=== PATIENT | female | born 1995 | race Caucasian/White ===

== ENCOUNTER 2017-10-19 05:16 | Emergency (ER) | payer OTHER ==
[~2017-10-19] VITALS: Ht 157.5 cm; Wt 45.5 kg
[2017-10-19] MEDS ORDERED: ALBUTEROL SUL0.083 % IN (05:54)
[2017-10-19] MEDS ORDERED: VENTOLIN HFA IN (05:54)
[2017-10-19 06:41] LABS: HEMOGLOBIN 13.1 g/dl (12.0-16.0); IMMATURE GRANULOCYTES 0.3 % (0.0-1.0); MEAN CELL VOLUME 90.3 fL CALC (80.0-100.0); MEAN CORPUSCULAR HGB 30.3 pG CALC (26.0-32.0); MEAN CORPUSCULAR HGB CONC 33.6 g/L CALC (32.0-36.0); NEUT# 5.71 thou/uL (2.00-7.15); RED BLOOD COUNT 4.32 mill/uL (4.20-5.60); RED CELL DISTRI WIDTH 13.1 % (11.5-15.5)
[2017-10-19] MEDS ORDERED: PREDNISONE10 MG PO (06:47)
[2017-10-19 07:24] VITALS: BP 127/78
== END 2017-10-19 07:46 | disposition home or self-care (01) | DRG 203 ==
LOC: ED 05:16
PROVIDERS: Family Medicine
DX: J45.901 Unspecified asthma with (acute) exacerbation (principal)

== ENCOUNTER 2018-01-13 08:53 | Emergency (ER) | payer OTHER ==
[~2018-01-13] VITALS: Ht 157.5 cm; Wt 70.0 kg
[~2018-01-13 08:53] MED LIST: ALBUTEROL SUL0.083 % IN; PREDNISONE10 MG PO; VENTOLIN HFA IN
[2018-01-13 09:17] LABS: HEMATOCRIT 36.7 % (37.0-47.0); HEMOGLOBIN 12.3 g/dl (12.0-16.0); IMMATURE GRANULOCYTES 0.4 % (0.0-5.0); MEAN CELL VOLUME 92.7 fL CALC (80.0-100.0); MEAN CORPUSCULAR HGB 31.1 pG CALC (26.0-32.0); MEAN CORPUSCULAR HGB CONC 33.5 g/L CALC (32.0-36.0); NEUT# 9.81 thou/uL (2.00-7.15); RED BLOOD COUNT 3.96 mill/uL (4.20-5.60); RED CELL DISTRI WIDTH 13.2 % (11.5-15.5)
[2018-01-13 10:01] LABS: ALBUMIN 4.2 g/dL (3.2-5.0); ALKALINE PHOSPHATASE 49 u/l (38-126); ANION GAP 19 (6-22 (CALC)); BILIRUBIN, TOTAL 0.2 mg/dL (0.0-1.4); BUN 11 mg/dL (7-17); BUN/CREATININE RATIO 18 (12-20 (CALC)); CARBON DIOXIDE 20 mmol/l (22-30); CHLORIDE 105 mmol/l (95-108); CREATININE 0.6 mg/dL (0.5-1.0); GFR > 60 ML/MIN (>=60 (CALC)); GFR FOR AFR.AMER. > 60 ML/MIN (>=60 (CALC)); POTASSIUM 3.9 mmol/l (3.5-5.1); SGOT/AST 18 u/l (14-36); SGPT/ALT 19 u/l (9-52); SODIUM 140 mmol/l (137-146); TOTAL PROTEIN 6.8 g/dL (6.3-8.2)
[2018-01-13] MEDS ORDERED: AMOXICILLIN500 MG PO (10:20)
[2018-01-13] MEDS ORDERED: PREDNISONE10 MG PO (10:20)
[2018-01-13 10:36] VITALS: BP 90/44
== END 2018-01-13 10:43 | disposition home or self-care (01) ==
LOC: ED 08:53
PROVIDERS: Family Medicine
DX: J45.901 Unspecified asthma with (acute) exacerbation (principal); R73.9 Hyperglycemia, unspecified; T48.4X5A Adverse effect of expectorants, initial encounter; R06.02 Shortness of breath; R06.2 Wheezing

== ENCOUNTER 2018-01-13 22:06 | Inpatient (IN) | payer OTHER ==
[~2018-01-13] VITALS: Ht 157.5 cm; Wt 28.3 kg
[~2018-01-13 22:06] MED LIST changes: +AMOXICILLIN500 MG PO
[2018-01-13 23:02] LABS: HEMATOCRIT 37.5 % (37.0-47.0); HEMOGLOBIN 12.6 g/dl (12.0-16.0); IMMATURE GRANULOCYTES 0.4 % (0.0-5.0); MEAN CELL VOLUME 92.1 fL CALC (80.0-100.0); MEAN CORPUSCULAR HGB CONC 33.6 g/L CALC (32.0-36.0); NEUT# 17.94 thou/uL (2.00-7.15); RED BLOOD COUNT 4.07 mill/uL (4.20-5.60); RED CELL DISTRI WIDTH 13.2 % (11.5-15.5)
[2018-01-13 23:17] LABS: ALBUMIN 4.6 g/dL (3.2-5.0); ALKALINE PHOSPHATASE 50 u/l (38-126); ANION GAP 22 (6-22 (CALC)); BILIRUBIN, TOTAL 0.2 mg/dL (0.0-1.4); BUN 11 mg/dL (7-17); BUN/CREATININE RATIO 24 (12-20 (CALC)); CARBON DIOXIDE 22 mmol/l (22-30); CHLORIDE 105 mmol/l (95-108); CREATININE 0.5 mg/dL (0.5-1.0); GFR > 60 ML/MIN (>=60 (CALC)); GFR FOR AFR.AMER. > 60 ML/MIN (>=60 (CALC)); SGOT/AST 24 u/l (14-36); SGPT/ALT 17 u/l (9-52); SODIUM 144 mmol/l (137-146); TOTAL PROTEIN 7.5 g/dL (6.3-8.2)
[2018-01-13 23:24] LABS: POTASSIUM 4.8 mmol/l (3.5-5.1)
[2018-01-14] VITALS (12 sets, daily range): BP systolic 85–128; BP diastolic 42–63
[2018-01-14 00:10] LABS: INFLUENZA A NONE DETECTED (NONE DETECT); INFLUENZA B NONE DETECTED (NONE DETECT)
[2018-01-15 04:07] VITALS: BP 112/73
[2018-01-15 07:38] VITALS: BP 109/60
[2018-01-15] MEDS ORDERED: IPRATROPIU0.5 MG/3 M NEB (10:53)
== END 2018-01-15 11:32 | disposition home or self-care (01) | DRG 202 ==
LOC: ED 22:06 → ED-I 01-14 → ED 01-14 00:44 → ICU 01-14 00:44 → MS2 01-14 15:05
PROVIDERS: Emergency Medicine; ADMIT Internal Medicine; ATTEND Internal Medicine
DX: J45.902 Unspecified asthma with status asthmaticus (principal); R65.10 Systemic inflammatory response syndrome (SIRS) of non-infectious origin without acute organ dysfunction; J02.0 Streptococcal pharyngitis; R73.9 Hyperglycemia, unspecified

== ENCOUNTER 2018-05-02 17:16 | Emergency (ER) | payer OTHER ==
[~2018-05-02] VITALS: Ht 157.5 cm; Wt 54.0 kg
[~2018-05-02 17:16] MED LIST changes: +IPRATROPIU0.5 MG/3 M NEB
[2018-05-02 17:59] LABS: HEMOGLOBIN 13.1 g/dl (12.0-16.0); IMMATURE GRANULOCYTES 0.5 % (0.0-5.0); MEAN CELL VOLUME 94.7 fL CALC (80.0-100.0); MEAN CORPUSCULAR HGB 30.3 pG CALC (26.0-32.0); NEUT# 8.79 thou/uL (2.00-7.15); RED BLOOD COUNT 4.33 mill/uL (4.20-5.60)
[2018-05-02 18:00] LABS: URINE BILIRUBIN - DIPSTICK NEGATIVE (NEGATIVE); URINE BLOOD DIPSTICK NEGATIVE (NEGATIVE); URINE COLOR YELLOW; URINE GLUCOSE - DIPSTICK 250 mg/dL (NEGATIVE); URINE KETONE NEGATIVE (NEGATIVE); URINE LEUK ESTERASE NEGATIVE (NEGATIVE); URINE NITRITE - DIPSTICK NEGATIVE (Negative); URINE PROTEIN - DIPSTICK NEGATIVE (NEG-TRACE); URINE SPECIFIC GRAVITY >=1.030; URINE UROBILINOGEN - DIPSTICK 0.2 E.U./dL (0.2)
[2018-05-02 18:01] LABS: BARBITURATES NEGATIVE (NEGATIVE); COCAINE NEGATIVE (NEGATIVE); METHADONE NEGATIVE (NEGATIVE); OXCYCODONE NEGATIVE (NEGATIVE); TETRAHYDROCANNABIONOL NEGATIVE (NEGATIVE); TRICYLIC ANTIDEPRESSANTS NEGATIVE (NEGATIVE); URINE CLARITY CLEAR
[2018-05-02 18:19] LABS: ALBUMIN 4.3 g/dL (3.2-5.0); ALKALINE PHOSPHATASE 36 u/l (38-126); ANION GAP 17 (6-22 (CALC)); BILIRUBIN, TOTAL 0.3 mg/dL (0.0-1.4); BUN 7 mg/dL (7-17); BUN/CREATININE RATIO 14 (12-20 (CALC)); CARBON DIOXIDE 20 mmol/l (22-30); CHLORIDE 107 mmol/l (95-108); CREATININE 0.5 mg/dL (0.5-1.0); ETHYL ALCOHOL 0 mg/dl (0-30); GFR > 60 ML/MIN (>=60 (CALC)); GFR FOR AFR.AMER. > 60 ML/MIN (>=60 (CALC)); POTASSIUM 4.8 mmol/l (3.5-5.1); SGOT/AST 21 u/l (14-36); SODIUM 139 mmol/l (137-146)
[2018-05-02 18:50] VITALS: BP 143/83
== END 2018-05-02 18:45 | disposition short-term general hospital (02) ==
LOC: ED 17:16
PROVIDERS: Family Medicine
DX: J45.901 Unspecified asthma with (acute) exacerbation (principal); R06.03 Acute respiratory distress; R06.02 Shortness of breath; R05 Cough; R09.89 Other specified symptoms and signs involving the circulatory and respiratory systems
CPT/HCPCS: J3475

== ENCOUNTER 2019-03-22 03:22 | Observation (INO) | payer SELFPAY ==
[~2019-03-22] VITALS: Ht 160 cm; Wt 48.6 kg
--- NOTE | 2019-03-22 03:25 | NUR ---
PT STRAIGHT BACK TO ROOM 13 AND TRIAGED
--- NOTE | 2019-03-22 03:35 | NUR ---
LUNGS TIGHT/WHEEZING BILAT.
--- NOTE | 2019-03-22 03:57 | NUR ---
BREATHING TREATMENT GIVEN WITH [employer]. BREATHING TECH. FOR GOOD DEPOSITION TO THE LUNGS.
--- NOTE | 2019-03-22 03:59 | NUR ---
RT AT BEDSIDE. TREATMENT STARTED.
[2019-03-22 04:01] LABS: IMMATURE GRANULOCYTES 0.2 % (0.0-5.0); MEAN CELL VOLUME 89.9 fL CALC (80.0-100.0); MEAN CORPUSCULAR HGB 29.4 pG CALC (26.0-32.0); MEAN CORPUSCULAR HGB CONC 32.7 g/L CALC (32.0-36.0); NEUT# 4.69 thou/uL (2.00-7.15); RED BLOOD COUNT 3.67 mill/uL (4.20-5.60); RED CELL DISTRI WIDTH 12.9 % (11.5-15.5)
[2019-03-22 04:13] LABS: HEMOGLOBIN 10.8 g/dl (12.0-16.0)
[2019-03-22 04:14] LABS: ALBUMIN 4.1 g/dL (3.2-5.0); ALKALINE PHOSPHATASE 40 u/l (38-126); ANION GAP 14 (6-22 (CALC)); BILIRUBIN, TOTAL 0.2 mg/dL (0.0-1.4); BUN 8 mg/dL (7-17); BUN/CREATININE RATIO 15 (12-20 (CALC)); CARBON DIOXIDE 24 mmol/l (22-30); CHLORIDE 107 mmol/l (95-108); CREATININE 0.6 mg/dL (0.5-1.0); GFR > 60 ML/MIN (>=60 (CALC)); GFR FOR AFR.AMER. > 60 ML/MIN (>=60 (CALC)); SGOT/AST 17 u/l (14-36); SODIUM 142 mmol/l (137-146); TOTAL PROTEIN 6.8 g/dL (6.3-8.2)
--- NOTE | 2019-03-22 04:14 | NUR ---
MD IS AWARE ABOUT THE HEART RATE.
[2019-03-22 04:22] LABS: POTASSIUM 3.4 mmol/l (3.5-5.1)
--- NOTE | 2019-03-22 04:27 | NUR ---
TREATMENT COMPLETED. XRAY AT BEDSIDE.
--- NOTE | 2019-03-22 05:30 | NUR ---
PT FEELS MUCH BETTER. LESS TIGHT. STILL HAS SOME WHEEZES. NAD. VSS.
--- NOTE | 2019-03-22 05:38 | NUR ---
JESSICATHROMAX HUNG BUT COMPUTOR SHUT OFF PRIOR TO SUBMITTING. COMPUTOR NOW LOCKED.
--- NOTE | 2019-03-22 05:45 | NUR ---
REPORT TO HELDER/MED SURG
--- NOTE | 2019-03-22 05:55 | NUR ---
TO FLOOR VIA STRETCHER WITH ZITHROMAX INFUSING. FATHER AT BEDSIDE. BELONGINGS IN BAG TO FLOOR WITH PT. PT AMBULATORY TO BED UPON ARRIVAL. NAD. RESP EASY.
[2019-03-22 05:57] VITALS: BP 102/56
--- NOTE | 2019-03-22 06:45 | NUR ---
PATIENT ADMITTED FROM ER VIA STRETCHER WITH ER STAFF AND FATHER IN ATTENDANCE. PATIENT IS AWAKE ALERT WITH FLAT AFFECT. ADMITTED FOR ASTHMA-O2 SATS 97% ON RA AT THIS TIME. PATIENT ASSISTED TO BED. IV SITE TO LEFT AC INTACT WITH AZITHRO INFUSING ORDERED. SITE IS HEALTHY AT THIS TIME. PATIENT WITH WHEEZING TO BASES NOTED WITH CHEST TIGHTNESS. PATIENT DOES SAY THAT SHE FEELS BETTER THAN BEFORE. PATIENT LIVES WITH FAMILY. SEES DR. GARCIA-PULMONOLOGY IN [phone]. PATIENT WITH HISTORY OF AUTISM. MOTHER NOW AT BEDSIDE. ORIENTED PATIENT AND PARENTS TO ROOM AND SURROUNDINGS. SAFETY PRECAUTIONS REINFORCED. CALL LIGHT IN REACH. WILL CONT TO MONITOR.
[2019-03-22 07:58] VITALS: BP 106/49
--- NOTE | 2019-03-22 08:41 | NUR ---
REPORT WAS RECEIVED FROM HELDER. ASSESSMENT DONE. PT IS A&O X2 PER MOM PT HAS AUTISM. PT STATED PAIN 3/10 HEADACHE. MEDICATED PT WITH TYLENOL SEE EMAR. IVF INFUSING WELL. PT MOM IN ROOM. PT DENIES NEEDS. CALL LIGHT IN REACH. NOTIFIED JABARI WOODALL RE: PT PULSE 110.
[2019-03-22 10:28] LABS: URINE BILIRUBIN - DIPSTICK NEGATIVE (NEGATIVE); URINE BLOOD DIPSTICK LARGE (NEGATIVE); URINE COLOR YELLOW; URINE GLUCOSE - DIPSTICK 100 mg/dL (NEGATIVE); URINE KETONE NEGATIVE (NEGATIVE); URINE LEUK ESTERASE NEGATIVE (NEGATIVE); URINE NITRITE - DIPSTICK NEGATIVE (Negative); URINE PH 5.5 (4.5-8.0); URINE PROTEIN - DIPSTICK NEGATIVE (NEG-TRACE); URINE UROBILINOGEN - DIPSTICK 0.2 E.U./dL (0.2)
[2019-03-22 10:38] LABS: URINE SQUAMOUS EPITHELIAL CELL FEW EPI/hpf (0-FEW); URINE WBC 0-2 WBC/hpf (0-5)
--- NOTE | 2019-03-22 11:10 | NUR ---
PT IS RESTING IN BED. PT STATED SHE HAS A HEADACHE. REQUESTING ICE PACK FOR FOREHEAD. PT DENIES ANY OTHER NEEDS. PT MOM IN ROOM. CALL LIGHT IN REACH.
--- NOTE | 2019-03-22 15:40 | NUR ---
PT IS SLEEPING IN BED WITH NO S/S OF DISTRESS NOTED. PER PT MOM SHE REFUSED NENA'S ON. PT MOM STATED SHE WILL GET HER UP FOR DINNER IN THE CHAIR. CALL LIGHT IN REACH.
[2019-03-22 16:24] VITALS: BP 110/51
[2019-03-22 18:49] VITALS: BP 113/70
--- NOTE | 2019-03-22 19:45 | NUR ---
PATIENT IS UP AND AMBULTING IN THE HALLS WITH HER MOTHER-STEADY ON HER FEET. IVF PATENT AND INFUSING VIA LEFT AC SITE AT 125CC/HR. SITE IS HEALTHY AT THIS TIME. NO COMPLAINTS AND THIS TIME. SAFEY PRECAUTIONS REINFORCED. CALL LIGHT IN REACH. WILL CONT TO MONITOR.
--- NOTE | 2019-03-22 21:42 | NUR ---
PATIENT RESTING IN BED AT THIS TIME WITH MOTHER AT BEDSIDE. PATIENT WITH NO NEEDS AT THIS TIME. STATES THAT HER HEADACHE IS BETTER. NO COUGH NOTED AT THIS TIME. LUNGS STILL WITH WHEEZING THOUGHOUT BUT NOT TIGHT THIS DIGITAL ARTIST. IV SITE REMAINS HEALTHY WITH NS PATENT AND INFUSING AT 125CC/HR. MOTHER OFFERED COT OR RECLINER BUT DECLINED AT THIS ITME. CALL LIGHT IN REACH. WILL CONT TO MONITOR.
--- NOTE | 2019-03-23 00:41 | NUR ---
PATIENT AWAKE IN BED WATCHING TV WITH HER MOTHER. NO COMPLAINTS AT THIS TIME-NO COUGH. PATIENT STATES THAT SHE IS "BREATHING FINE" AT THIS TIME. IVF NS PATENT AND INFUSING AT 125CC/HR VIA RIGHT AC SITE. REMAINS HEALTHY AT THIS TIME. STATES THAT SHE DID HAVE BM. SAFETY PRECAUTIONS REINFORCED. CALL LIGHT IN REACH. WILL CONT TO MONITOR.
[2019-03-23 05:24] VITALS: BP 110/68
[2019-03-23 05:25] LABS: HEMATOCRIT 31.3 % (37.0-47.0); HEMOGLOBIN 10.1 g/dl (12.0-16.0); IMMATURE GRANULOCYTES 0.5 % (0.0-5.0); MEAN CELL VOLUME 90.5 fL CALC (80.0-100.0); MEAN CORPUSCULAR HGB 29.2 pG CALC (26.0-32.0); MEAN CORPUSCULAR HGB CONC 32.3 g/L CALC (32.0-36.0); NEUT# 9.59 thou/uL (2.00-7.15); RED BLOOD COUNT 3.46 mill/uL (4.20-5.60); RED CELL DISTRI WIDTH 13.2 % (11.5-15.5)
--- NOTE | 2019-03-23 05:44 | NUR ---
PATIENT UP MOST OF THE NIGHT WATCHING TV. NO COMPLAINTS. IVF NS PATENT AND INFUSING AT 125CC/HR. SITE IS HEALTHY. SOLU-MEDROL GIVEN ORDERED. PATIENT TO X-RAY FOR CXR. WILL CONT TO MONITOR.
--- NOTE | 2019-03-23 07:05 | NUR ---
PT REPORT RECIEVED FROM PHIL PENDLETON. PT SITTING ON SIDE OF BED W/ MOM. NO S/S OF DISTRESS. CALL LIGHT IN REACH. WILL CONTINUE TO MONITOR.
--- NOTE | 2019-03-23 07:09 | NUR ---
CXR DONE. AZITHRO GIVEN. PATIENT UP WALKING IN THE HALLS WITH HER MOTHER. NO COMPLAINTS. WILL CONT TO MONITOR.
[2019-03-23 07:50] VITALS: BP 102/63
--- NOTE | 2019-03-23 07:50 | NUR ---
PT A/O X2. RESP EVEN AND UNLABORED. LUNG SOUNDS WHEEZING. BOWEL SOUNDS ACTIVE X4. STRONG RADIAL AND PEDAL PULSES. #20 LAC NS @125. SITE APPEARS HEALTHY. SKIN INTACT. PT ANXIOUS TO GO HOME TODAY. NO C/O PAIN OR NEEDS. POC DISCUSSED W/ PT AND MOTHER. SAFETY PRECAUTIONS IN PLACE. CALL LIGHT IN REACH. WILL CONTINUE TO MONITOR.
[2019-03-23] MEDS ORDERED: ZITHROMAX250 MG PO (10:42)
[2019-03-23] MEDS ORDERED: PREDNISONE10 MG PO (10:42)
--- NOTE | 2019-03-23 11:42 | NUR ---
D/C INSTRUCTIONS DISCUSSED W/ PT AND MOTHER. BOTH STATES UNDERSTANDING. IV REMOVED; CATHETER INTACT. PT DRESSED. AWAITING TRANSPORT DOWNSTAIRS
--- NOTE | 2019-03-23 12:10 | NUR ---
Discharge instructions given. Patient verbalizes understanding of same. Discharged in stable condition via Ambulatory to Home with family. All belongings sent with pt.
== END 2019-03-23 12:09 | disposition home or self-care (01) | DRG 202 ==
LOC: ED 03:22 → ED-I 04:53 → ED 05:20 → MS2 05:21
PROVIDERS: Emergency Medicine; Nurse Practitioner Family; ADMIT Internal Medicine; ATTEND Internal Medicine
DX: J45.901 Unspecified asthma with (acute) exacerbation (principal); J20.9 Acute bronchitis, unspecified; D64.9 Anemia, unspecified; F84.0 Autistic disorder
CPT/HCPCS: G0378

== ENCOUNTER 2019-06-25 10:59 | Inpatient (IN) | payer SELFPAY ==
[2019-06-25] VITALS (11 sets, daily range): BP systolic 90–116; BP diastolic 53–69
[~2019-06-25] VITALS: Ht 157.5 cm; Wt 51.4 kg
[~2019-06-25 10:59] MED LIST changes: +ZITHROMAX250 MG PO
[2019-06-25 11:28] LABS: HCG SERUM/URINE (NEG/POS) NEGATIVE (NEGATIVE)
[2019-06-25 11:29] LABS: ALBUMIN 4.3 g/dL (3.2-5.0); ALKALINE PHOSPHATASE 38 u/l (38-126); ANION GAP 15 (6-22 (CALC)); BUN 13 mg/dL (7-17); BUN/CREATININE RATIO 26 (12-20 (CALC)); CARBON DIOXIDE 24 mmol/l (22-30); CHLORIDE 104 mmol/l (95-108); CREATININE 0.5 mg/dL (0.5-1.0); GFR > 60 ML/MIN (>=60 (CALC)); GFR FOR AFR.AMER. > 60 ML/MIN (>=60 (CALC)); POTASSIUM 3.9 mmol/l (3.5-5.1); SGOT/AST 20 u/l (14-36); SODIUM 139 mmol/l (137-146)
[2019-06-25 11:49] LABS: BILIRUBIN, TOTAL 0.5 mg/dL (0.0-1.4)
[2019-06-25 12:09] LABS: HEMATOCRIT 35.5 % (37.0-47.0); HEMOGLOBIN 11.3 g/dl (12.0-16.0); IMMATURE GRANULOCYTES 0.4 % (0.0-5.0); MEAN CELL VOLUME 95.2 fL CALC (80.0-100.0); MEAN CORPUSCULAR HGB 30.3 pG CALC (26.0-32.0); MEAN CORPUSCULAR HGB CONC 31.8 g/L CALC (32.0-36.0); NEUT# 9.5 thou/uL (2.00-7.15); RED BLOOD COUNT 3.73 mill/uL (4.20-5.60)
[2019-06-25] MEDS ORDERED: ZYRTEC10 M5 PO (13:03)
[2019-06-26] VITALS (15 sets, daily range): BP systolic 15–116; BP diastolic 56–75
[2019-06-26 04:47] LABS: URINE BILIRUBIN - DIPSTICK NEGATIVE (NEGATIVE); URINE BLOOD DIPSTICK NEGATIVE (NEGATIVE); URINE COLOR YELLOW; URINE GLUCOSE - DIPSTICK NEGATIVE (NEGATIVE); URINE KETONE 40 mg/dL (NEGATIVE); URINE LEUK ESTERASE NEGATIVE (NEGATIVE); URINE NITRITE - DIPSTICK NEGATIVE (Negative); URINE PH 6.5 (4.5-8.0); URINE PROTEIN - DIPSTICK NEGATIVE (NEG-TRACE); URINE UROBILINOGEN - DIPSTICK 0.2 E.U./dL (0.2)
[2019-06-26 04:47] LABS: HEMATOCRIT 34.1 % (37.0-47.0); IMMATURE GRANULOCYTES 0.7 % (0.0-5.0); MEAN CELL VOLUME 93.9 fL CALC (80.0-100.0); MEAN CORPUSCULAR HGB 30.3 pG CALC (26.0-32.0); MEAN CORPUSCULAR HGB CONC 32.3 g/L CALC (32.0-36.0); NEUT# 14.47 thou/uL (2.00-7.15); RED BLOOD COUNT 3.63 mill/uL (4.20-5.60); RED CELL DISTRI WIDTH 13.9 % (11.5-15.5)
[2019-06-26 05:04] LABS: ALBUMIN 4.2 g/dL (3.2-5.0); ALKALINE PHOSPHATASE 40 u/l (38-126); ANION GAP 13 (6-22 (CALC)); BILIRUBIN, TOTAL 0.3 mg/dL (0.0-1.4); BUN 7 mg/dL (7-17); BUN/CREATININE RATIO 19 (12-20 (CALC)); CARBON DIOXIDE 24 mmol/l (22-30); CHLORIDE 105 mmol/l (95-108); CREATININE 0.4 mg/dL (0.5-1.0); GFR > 60 ML/MIN (>=60 (CALC)); GFR FOR AFR.AMER. > 60 ML/MIN (>=60 (CALC)); POTASSIUM 4.2 mmol/l (3.5-5.1); SGOT/AST 19 u/l (14-36); SODIUM 138 mmol/l (137-146)
[2019-06-27] VITALS (12 sets, daily range): BP systolic 97–127; BP diastolic 61–86
[2019-06-28 00:05] VITALS: BP 103/49
[2019-06-28 02:03] VITALS: BP 124/70
[2019-06-28 04:00] VITALS: BP 116/66
[2019-06-28 06:14] VITALS: BP 116/63
[2019-06-28] MEDS ORDERED: ZITHROMAX250 MG PO (08:20)
[2019-06-28] MEDS ORDERED: PREDNISONE10 MG PO (08:20)
[2019-06-28] MEDS ORDERED: FLOVENT DI250 MCG/BL IN (08:26)
[2019-06-28] MEDS ORDERED: IPRATROPIU0.5 MG/3 M NEB (08:26)
== END 2019-06-28 09:10 | disposition home or self-care (01) | DRG 189 ==
LOC: ED 10:59 → ED-I 12:33 → ED 12:50 → ICU 12:51
PROVIDERS: Family Medicine; Nurse Practitioner Family; ADMIT Internal Medicine; ATTEND Internal Medicine
PROC: 5A09357 Assistance with Respiratory Ventilation, Less than 24 Consecutive Hours, Continuous Positive Airway Pressure (ICD-10-PCS; principal; 2019-06-25)
DX: J96.01 Acute respiratory failure with hypoxia (principal); J45.901 Unspecified asthma with (acute) exacerbation; F84.0 Autistic disorder; D64.9 Anemia, unspecified
CPT/HCPCS: J1650; J3475

== ENCOUNTER 2022-02-06 22:48 | Emergency (ER) | payer SELFPAY ==
[~2022-02-06] VITALS: Ht 157.5 cm; Wt 59.0 kg
[~2022-02-06 22:48] MED LIST changes: +FLOVENT DI250 MCG/BL IN; +ZYRTEC10 M5 PO
[2022-02-06 23:24] LABS: HEMATOCRIT 38.8 % (37.0-47.0); IMMATURE GRANULOCYTES 0.1 % (0.0-5.0); MEAN CELL VOLUME 93.3 fL CALC (80.0-100.0); MEAN CORPUSCULAR HGB 31.5 pG CALC (26.0-32.0); MEAN CORPUSCULAR HGB CONC 33.8 g/dL CAL (32.0-36.0); NEUT# 9.52 thou/uL (2.00-7.15); RED BLOOD COUNT 4.16 mill/uL (4.20-5.60); RED CELL DISTRI WIDTH 12.5 % (11.5-15.5)
[2022-02-06 23:25] LABS: HEMOGLOBIN 13.1 g/dl (12.0-16.0)
[2022-02-06 23:42] LABS: ALBUMIN 4.7 g/dL (3.2-5.0); ALKALINE PHOSPHATASE 50 u/l (38-126); BILIRUBIN, TOTAL 0.4 mg/dL (0.0-1.4); BUN 5 mg/dL (7-17); BUN/CREATININE RATIO 11 (12-20 (CALC)); CARBON DIOXIDE 21 mmol/l (22-30); CHLORIDE 111 mmol/l (95-108); CREATININE 0.5 mg/dL (0.5-1.0); GFR FOR AFR.AMER. > 60 ML/MIN (>=60 (CALC)); GFR OTHER RACES > 60 ML/MIN (>=60 (CALC)); SGOT/AST 19 u/l (14-36); SODIUM 143 mmol/l (137-146); TOTAL PROTEIN 7.9 g/dL (6.3-8.2)
[2022-02-07 00:14] LABS: ANION GAP 14 (6-22 (CALC)); POTASSIUM 3.3 mmol/l (3.5-5.1)
[2022-02-07] MEDS ORDERED: ZPAK PO ×2 (00:25→00:27)
[2022-02-07] MEDS ORDERED: MEDDOSEPAK PO (00:25)
[2022-02-07 00:42] VITALS: BP 125/67
== END 2022-02-07 00:42 | disposition home or self-care (01) | DRG 203 ==
LOC: ED 22:48
PROVIDERS: Emergency Medicine
DX: J45.901 Unspecified asthma with (acute) exacerbation (principal); Z20.822 Contact with and (suspected) exposure to COVID-19

== ENCOUNTER 2024-06-22 13:55 | Emergency (ER) | payer SELFPAY ==
[~2024-06-22] VITALS: Ht 157.5 cm; Wt 51.0 kg
[2024-06-22] VITALS (15 sets, daily range): BP systolic 87–112; BP diastolic 49–67
[~2024-06-22 13:55] MED LIST changes: +MEDDOSEPAK PO; +ZPAK PO
[2024-06-22] MEDS ORDERED: IPRATROPIUM-Albuterol 0.5MG-2.5MG/3 ML NEB ONE (14:05)
[2024-06-22] MEDS ORDERED: methylPREDNISolone SODIUM SUCC 125 MG/2 ML SDV IV ONE (14:05)
[2024-06-22] MEDS ORDERED: MAGNESIUM SULFATE HEPTAHYDRATE 50 ML IV ONE (14:05)
[2024-06-22 14:27] LABS: BASO% 0.4 % (0-3); EOS% 2.3 % (0-8); HEMATOCRIT 36.9 % (37.0-47.0); HEMOGLOBIN 12.2 g/dl (12.0-16.0); LYMPH% 10.9 % (15-41); MEAN CELL VOLUME 96.1 fL CALC (80.0-100.0); MEAN CORPUSCULAR HGB 31.8 pG CALC (26.0-32.0); MEAN CORPUSCULAR HGB CONC 33.1 g/dL CAL (32.0-36.0); MONO% 10.8 % (2-13); NEUT# 6.12 thou/uL (2.00-7.15); NEUT% 75.6 % (42-76); RED BLOOD COUNT 3.84 mill/uL (4.20-5.60)
[2024-06-22 14:45] LABS: ALBUMIN 4.3 g/dL (3.2-5.0); CREATININE 0.6 mg/dL (0.5-1.0); POTASSIUM 3.3 mmol/l (3.5-5.1); TOTAL PROTEIN 7.2 g/dL (6.3-8.2)
[2024-06-22 14:52] LABS: BILIRUBIN, TOTAL 0.6 mg/dL (0.02-1.3)
[2024-06-22] MEDS ORDERED: PREDNISONE20 MG PO (17:19)
== END 2024-06-22 17:30 | disposition home or self-care (01) | DRG 203 ==
LOC: ED 13:55
PROVIDERS: Nurse Practitioner
DX: J45.901 Unspecified asthma with (acute) exacerbation (principal); Z20.822 Contact with and (suspected) exposure to COVID-19
CPT/HCPCS: J3475